=== PATIENT | female | born 1975 | race Native Hawaiian/Other Pacific Islander ===

== ENCOUNTER 2022-11-30 14:15 | Inpatient (IN) | payer OTHER ==
[2022-11-30] VITALS (8 sets, daily range): BP systolic 146–173; BP diastolic 73–98; TEMP 97.8–98.2
[~2022-11-30] VITALS: Ht 172.7 cm; Wt 89.4 kg
[~2022-11-30 14:15] MED LIST: AMOX500T5 PO; NITR100C56 PO
[2022-11-30 14:29] LABS: PLATELET COUNT 129 K/uL (152-353)
[2022-11-30 14:45] LABS: POTASSIUM 3.9 mmol/L (3.6-5.2)
[2022-11-30] MEDS ORDERED: GABA400C2 PO (20:28)
[2022-11-30] MEDS ORDERED: LIPITOR20 MG PO (20:29)
[2022-11-30] MEDS ORDERED: ASPIRIN/ENTERIC81 MG PO (20:29)
[2022-11-30] MEDS ORDERED: MYRBETRIQ50 MG PO (20:30)
[2022-11-30] MEDS ORDERED: OMEP40CA PO (20:31)
[2022-11-30] MEDS ORDERED: CETI10TA PO (20:31)
[2022-11-30] MEDS ORDERED: BUSPIRONE30 MG PO (20:31)
[2022-11-30] MEDS ORDERED: PEPCID40 MG PO (20:32)
[2022-11-30] MEDS ORDERED: HYDR10TA47 PO (20:32)
[2022-11-30] MEDS ORDERED: BUDE1AER5 INH (20:33)
[2022-11-30] MEDS ORDERED: NEBIVOLOL10 MG PO (20:33)
[2022-11-30] MEDS ORDERED: BENICAR40 MG PO (20:33)
[2022-11-30] MEDS ORDERED: IRON325 MG PO (20:36)
[2022-11-30] MEDS ORDERED: BACLOFEN20 MG PO (20:37)
[2022-11-30] MEDS ORDERED: MOBIC15 MG PO (20:37)
[2022-11-30] MEDS ORDERED: DULO60CA2 PO (20:37)
[2022-11-30] MEDS ORDERED: DITROPAN XL10 MG PO (20:38)
[2022-12-01] VITALS: BP 129/84; TEMP 98.5
[2022-12-01 02:57] VITALS: BP 172/98; TEMP 97.8; Ht 172.7 cm; Wt 89.4 kg
[2022-12-01 03:53] VITALS: BP 123/88; TEMP 98.8
[2022-12-01 05:26] LABS: PLATELET COUNT 100 K/uL (152-353)
[2022-12-01 05:50] LABS: POTASSIUM 3.7 mmol/L (3.6-5.2)
[2022-12-01 08:00] VITALS: BP 151/94; TEMP 98.4
[2022-12-01 12:00] VITALS: BP 136/82; TEMP 98.6
== END 2022-12-01 12:51 | disposition home or self-care (01) | DRG 313 ==
LOC: ED 14:15 → MED/SURG 17:09
PROVIDERS: Family Medicine; ADMIT Internal Medicine Endocrinology, Diabetes & Metabolism; ATTEND Internal Medicine Endocrinology, Diabetes & Metabolism
DX: R07.89 Other chest pain (principal); D86.89 Sarcoidosis of other sites; I25.10 Atherosclerotic heart disease of native coronary artery without angina pectoris; I10 Essential (primary) hypertension; E78.49 Other hyperlipidemia; F41.8 Other specified anxiety disorders; G89.4 Chronic pain syndrome; M79.672 Pain in left foot
CPT/HCPCS: 36415; 80048; 80053; 84484; 84702; 85027; 85379; 87635; 93005; 96374; 96375; 99284; J1650; J2310; J2405; Q9963; U0003